=== PATIENT | male | born 1960 | race Caucasian/White ===

== ENCOUNTER → 2016-12-23 | Outpatient (CLI) | payer BC ==
[~2016-12-23] MED LIST: LISI20TA55 PO; OXYC5TAB PO; PHEN37.585 PO
--- NOTE | 2016-12-23 09:14 | DIAGNOSTIC IMAGING REPORT ---
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 COMPARISON: Chest CT 07/01/2016. FINDINGS: The right lower lobe is surgically absent. Trace right pleural effusion. Stable 6 mm nodule within the right middle lobe on image 177. Linear densities within the base of the right lung favor scarring. No new focal lung consolidations. No pneumothorax. The unenhanced liver and spleen are unremarkable. The heart is stable in size. No mediastinal or hilar lymphadenopathy. No suspicious lytic or blastic osseous lesions. IMPRESSION: 1. Status post right lower lobectomy. A few linear densities within the right lower lung zone favor scarring. 2. Stable 6 mm nodule within the right lower lobe. Please refer to the chart below for recommended follow-up. 3. Trace right pleural effusion. Please refer to below summary of Fleischner criteria recommendations for follow-up of incidental CT nodules (Jhoana House, Guidelines for management of small pulmonary nodules detected on CT scans: A statement from the Fleischner Society, Radiology 237: [phone].) SOLID NODULES Solitary nodule size: <6 mm * Low risk patients: no follow-up needed * high risk patients: optional CT at 12 months Solitary nodule size: 6-8 mm * Low risk patients: follow-up at 6-12 months, then consider further follow-up at 18-24 months * high risk patients: initial follow-up CT at 6-12 months and then at 18-24 months if no change Solitary nodule size: >8 mm * either low or high risk patients - consider follow-up CT at 3 months, and/or CT-PET, and/or biopsy Multiple nodules size: <6 mm * Low risk patients: no routine follow-up * high risk patients: optional CT at 12 months Multiple nodules size: 6-8 mm * Low risk patients: follow-up at 3-6 months, then consider further follow-up at 18-24 months * high risk patients: follow-up at 3-6 months, then at 18-24 months if no change Multiple nodules size: >8 mm * Low risk patients: follow-up at 3-6 months, then consider further follow-up at 18-24 months * high risk patients: follow-up at 3-6 months, then at 18-24 months if no change Note: newly detected indeterminate nodule in persons 35 years of age or older. * Low risk patients: minimal or absent history of smoking and/or other known risk factors * high risk patients: history of smoking or of other known risk factors (e.g. first degree relative with lung cancer, or exposure to asbestos, radon, uranium) * if a nodule up to 8 mm is partly solid or is ground glass further follow-up is required after 24 months to exclude possible slow growing adenocarcinoma (ERIN) SUBSOLID NODULES Solitary pure ground-glass nodule * nodule size <6 mm - no CT follow-up required * nodule size >=6 mm - follow-up CT at 6-12 months, then every 2 years until 5 years Solitary part-solid nodule * nodule size <6 mm - no CT follow-up required * nodule size >=6 mm - follow-up CT at 3-6 months. If unchanged, and solid component remains <6 mm, then annual follow-up for 5 years Multiple subsolid nodules * nodule size <6 mm - follow-up CT at 3-6 months, consider further follow-up at 2 and 4 years if stable * nodule size >=6 mm - follow-up CT at 3-6 months, subsequent management based on the most suspicious nodule(s) Electronically signed by: Brigido Sunshine M.D. 12/23/2016 9:13 AM Dictated Date/Time: 12/23/2016 9:06 AM
== END | disposition home or self-care (01) ==
LOC: C.CTS 08:48
PROVIDERS: ATTEND Surgery
DX: D3A.090 Benign carcinoid tumor of the bronchus and lung (principal); R91.1 Solitary pulmonary nodule; J90 Pleural effusion, not elsewhere classified

== ENCOUNTER → 2017-12-09 | Outpatient (CLI) | payer BC ==
--- NOTE | 2017-12-09 15:25 | DIAGNOSTIC IMAGING REPORT ---
(CHEST) THORAX WITHOUT CT DOSE: 403.69 mGy.cm HISTORY: Carcinoid CARCINOID TUMOR OF RIGHT LUNG TECHNIQUE: Multiaxial CT images of the chest were performed without contrast. A dose lowering technique was utilized adhering to the principles of ALARA. COMPARISON: 12/23/2016 FINDINGS: Unchanged exam. Postoperative changes consistent with a prior right lower lobectomy are again noted. Nodular density peripheral aspect right midlung is unchanged. There is no new or interval nodular densities. Postprocedural pleural and parenchymal scarring of the right mid and lower lung region is stable. There is no significant mediastinal or hilar adenopathy. Axillary view shows several small shotty axillary nodes which are unchanged. IMPRESSION: 1. Stable exam with no change from the prior study. 2. Unchanging postoperative change consistent with a prior right lower lobectomy.. 3. Unchanging small nodular density right midlung. 4. No evidence for new, interval, or progressive process. The above report was generated using voice recognition software. It may contain grammatical, syntax or spelling errors. Electronically signed by: Christian Love M.D. 12/09/2017 3:24 PM Dictated Date/Time: 12/09/2017 3:19 PM
== END | disposition home or self-care (01) ==
LOC: C.CTS 15:06
PROVIDERS: ATTEND Surgery
DX: D3A.090 Benign carcinoid tumor of the bronchus and lung (principal)